=== PATIENT | female | born 2000 | race Two or more races ===

== ENCOUNTER 2023-09-09 11:15 | Outpatient (CLI) | payer OTHER ==
[2023-09-09 22:21] LABS: NEISSERIA GONORRHOEAE DNA NEGATIVE (NEGATIVE)
[2023-09-09 23:08] LABS: CHLAMYDIA TRACHOMATIS DNA POSITIVE (NEGATIVE)
[2023-09-10 00:11] LABS: BACTERIAL VAGINOSIS DNA POSITIVE (NEGATIVE); CANDIDA GLABRATA DNA NEGATIVE (NEGATIVE); CANDIDA GROUP DNA NEGATIVE (NEGATIVE); CANDIDA KRUSEI DNA NEGATIVE (NEGATIVE); TRICHOMONAS VAGINALIS DNA NEGATIVE (NEGATIVE)
[2023-09-11 05:08] LABS: RPR Non Reactive (Non Reactive)
[2023-09-11 10:08] LABS: HIV SCREEN 4TH GENERATION Non Reactive (Non Reactive); HSV 1 IGG TYPE SPEC 8.78 index (0.00-0.90); HSV 2 IGG TYPE SPEC <0.91 index (0.00-0.90)
[2023-09-12 10:08] LABS: HCV AB Non Reactive (Non Reactive)
== END 2023-09-09 11:30 | disposition home or self-care (01) ==
LOC: LAB.N 11:15
PROVIDERS: ATTEND Physician Assistant Medical
DX: N89.8 Other specified noninflammatory disorders of vagina (principal); Z11.3 Encounter for screening for infections with a predominantly sexual mode of transmission
CPT/HCPCS: 36415; 81514; 86592; 86695; 86696; 86803; 87389; 87491; 87591; 87661